=== PATIENT | female | born 1945 | race Caucasian/White ===

== ENCOUNTER 2019-11-06 14:41 | Inpatient (IN) | payer MEDICARE ==
[~2019-11-06] VITALS: Ht 152.4 cm; Wt 62.4 kg
[2019-11-06] MEDS ORDERED: ENOX40DI SQ (20:03)
[2019-11-06] MEDS ORDERED: CELE200C PO (20:03)
[2019-11-06] MEDS ORDERED: BUPR-319 PO (20:03)
[2019-11-06] MEDS ORDERED: MEMA10TA PO (20:03)
[2019-11-06] MEDS ORDERED: ESCI10TA PO (20:03)
[2019-11-06] MEDS ORDERED: Z GUARD REMEDY PASTE 57 GM TUBE TOP SCH (21:00)
[2019-11-06] MEDS ORDERED: Z GUARD REMEDY PASTE 57 GM TUBE TOP PRN (21:15)
[2019-11-06 21:17] VITALS: BP 136/65
[2019-11-06] MEDS: HYDROCODONE/APAP 5-325MG TABLET PO PRN (21:27)
--- NOTE | 2019-11-06 22:46 | NUR ---
Received pt resting in bed. AAO x2-3, forgetful. On room air, no acute distress noted. C/o pain on right hip, PRN pain med given as ordered. VSS. Notified Dr. Díaz of admission. Notified Dr. Sandoval for medication reconciliation. Pertinent assessment done. Oriented pt to the room and equipment. MRSA swab sent to the lab. Belonging's list check done. Safety measures maintained. Call light and personal items within reach. Will continue to monitor.
--- NOTE | 2019-11-06 22:48 | NUR ---
As per pt's son, pt should not be taking leflunomide for rheumatoid arthritis. Pt's rheumatoid arthritis doctor discontinued it already 2 months ago. Notified .
[2019-11-07] MEDS: HYDROCODONE/APAP 5-325MG TABLET PO PRN ×4 (02:31→21:43)
[2019-11-07 05:40] VITALS: BP 119/64
[2019-11-07 07:30] VITALS: BP 138/71
[2019-11-07] MEDS ORDERED: MEMANTINE HCL 10 MG TABLET PO SCH (10:30)
[2019-11-07] MEDS: buPROPion XL 150 MG TAB.SR.24H PO SCH (10:52)
[2019-11-07] MEDS: ENOXAPARIN SODIUM 40 MG/0.4 ML DISP.SYRIN SQ SCH (10:53)
[2019-11-07] MEDS: MEMANTINE HCL 10 MG TABLET PO SCH ×2 (10:53→17:13)
[2019-11-07] MEDS: ESCITALOPRAM OXALATE 10 MG TABLET PO SCH (10:53)
--- NOTE | 2019-11-07 13:26 | NUR ---
INTERDISCIPLINARY TEAM CONFERENCE
--- NOTE | 2019-11-07 14:42 | NUR ---
FAMILY CONTACT: SW emailed pts son Dom ([phone]/ the following information: "Tim Fernandes, After speaking with Gene, case folder ([phone]), he informed me that there are 3 SNFs that your moms insurance is contracted with: 1.[facility] Address: [address] [place] [address] 2.[facility] Address: [address] [place] [address] 3.[facility] Address: [address] [place] [address] . Please follow up with him on Sunday for additional questions"
[2019-11-07 15:49] VITALS: BP 119/59
--- NOTE | 2019-11-07 20:00 | NUR ---
Received patient awake and verbally responsive, forgetful.On Room air .No s/s of distress.Denies pain or discomfort at this time.Noted with dry dressing on right hip.Call light with in reach .Will continue to monitor.Continue safety measures.
[2019-11-07 21:11] VITALS: BP 121/67
[2019-11-08] MEDS: HYDROCODONE/APAP 5-325MG TABLET PO PRN ×4 (02:26→21:43)
[2019-11-08 05:13] VITALS: BP 130/75
--- NOTE | 2019-11-08 06:10 | NUR ---
Patient slept intermittently .Noted with episode of agitation x1.C/o sharp pain on Rt hip.PRN medication given 225 with relief.Changed and repositioned patient for comfort.Refused to wear hospital gown at this time.Call light with in reach. Will endorse to oncoming nurse.
[2019-11-08 07:02] LABS: CARBON DIOXIDE 30 mmol/L (21-32); CHLORIDE 107 mmol/L (98-107); CREATININE 0.5 mg/dL (0.6-1.3); GLUCOSE 94 mg/dL (74-106); MAGNESIUM 1.9 mg/dL (1.8-2.4); PHOSPHOROUS 4.6 mg/dL (2.5-4.9); POTASSIUM 4.5 mmol/L (3.5-5.1); UREA NITROGEN, BLOOD 13 mg/dL (7-18)
[2019-11-08 07:32] LABS: BASOPHILS # (AUTO) 0.1 K/uL (0.0-8.0); BASOPHILS % (AUTO) 1.4 % (0.0-2.0); EOSINOPHILS # (AUTO) 0.3 K/uL (0.0-0.7); EOSINOPHILS % (AUTO) 5.5 % (0.0-7.0); HEMATOCRIT 27.3 % (31.2-41.9); HEMOGLOBIN 9.2 g/dL (10.9-14.3); LYMPHOCYTES % (AUTO) 16.3 % (20.5-51.5); MEAN CORPUSCULAR HEMOGLOBIN 29.7 uug (24.7-32.8); MEAN CORPUSCULAR HGB CONC 34 g/dL (32.3-35.6); MEAN CORPUSCULAR VOLUME 88.3 fL (75.5-95.3); MONOCYTES # (AUTO) 0.8 K/uL (2.0-10.0); MONOCYTES % (AUTO) 12.6 % (0.0-11.0); NEUTROPHILS # (AUTO) 3.9 K/uL (1.8-8.9); NEUTROPHILS % (AUTO) 64.2 % (38.5-71.5); PLATELET COUNT (AUTO) 297 K/uL (179-408); RED BLOOD CELL COUNT(AUTO) 3.09 MIL/uL (3.63-4.92)
[2019-11-08 08:00] VITALS: BP 136/64
[2019-11-08] MEDS: MEMANTINE HCL 10 MG TABLET PO SCH ×2 (08:42→17:31)
[2019-11-08] MEDS: ESCITALOPRAM OXALATE 10 MG TABLET PO SCH (08:42)
[2019-11-08] MEDS: buPROPion XL 150 MG TAB.SR.24H PO SCH (08:42)
[2019-11-08] MEDS: ENOXAPARIN SODIUM 40 MG/0.4 ML DISP.SYRIN SQ SCH (08:44)
--- NOTE | 2019-11-08 11:10 | NUR ---
Received patient in bed, patient is AAO x 1-2, patient noted being very forgetful. NO acute distress noted. Vital signs stable. Patient compliant with meds, due morning meds administered. Right hip incision site intact and dry, dressing changed. Patient on PT/OT therapy as outlined. Monitored closely, patient needs reorientation most of the time. Bed alarm on for safety. Skin kept clean and dry. Needs attended, safety measures in place and will continue with care.
[2019-11-08 15:46] VITALS: BP 119/62
--- NOTE | 2019-11-08 18:27 | NUR ---
Patient calm and resting in bed, assisted with adls, due evening meds administered and tolerated. Safety needs in place and will continue with care.
[2019-11-08 20:00] VITALS: BP 142/70
--- NOTE | 2019-11-08 21:30 | NUR ---
Received patient in bed, patient is AAO x 2-3 forgetful. No s/s of acute distress noted, no SOB noted, on room air. Vital signs stable. All due medication administered. Denies any pain at this moment. Right hip incision site intact and dry, dressing changed. Skin kept clean and dry.Safety measure in place, bed locked and lowered to lowest position, rails x2, bed locked and Bed alarm on for safety. Needs attended, safety measures in place and will continue with care.
--- NOTE | 2019-11-08 22:00 | NUR ---
Spoke to son Dom, aware that patient is confused and has history of dementia. Son would like a psych evaluation to be completed.
[2019-11-09] MEDS: HYDROCODONE/APAP 5-325MG TABLET PO PRN ×3 (02:32→20:45)
[2019-11-09 04:00] VITALS: BP 134/55
[2019-11-09] MEDS: ASPIRIN/ACETAMINOPHEN/CAFFEINE TABLET PO PRN ×2 (05:34→15:50)
[2019-11-09 06:02] LABS: BASOPHILS % (AUTO) 0.3 % (0.0-2.0); EOSINOPHILS # (AUTO) 0.3 K/uL (0.0-0.7); EOSINOPHILS % (AUTO) 4.9 % (0.0-7.0); HEMATOCRIT 26.1 % (31.2-41.9); HEMOGLOBIN 8.8 g/dL (10.9-14.3); LYMPHOCYTES # (AUTO) 1.2 K/uL (20.0-40.0); LYMPHOCYTES % (AUTO) 18.1 % (20.5-51.5); MEAN CORPUSCULAR HEMOGLOBIN 29.9 uug (24.7-32.8); MEAN CORPUSCULAR HGB CONC 34 g/dL (32.3-35.6); MEAN CORPUSCULAR VOLUME 88.2 fL (75.5-95.3); MONOCYTES # (AUTO) 0.8 K/uL (2.0-10.0); NEUTROPHILS # (AUTO) 4.1 K/uL (1.8-8.9); NEUTROPHILS % (AUTO) 64.7 % (38.5-71.5); PLATELET COUNT (AUTO) 322 K/uL (179-408); RED BLOOD CELL COUNT(AUTO) 2.96 MIL/uL (3.63-4.92); WHITE BLOOD COUNT (AUTO) 6.4 K/uL (3.8-11.8)
[2019-11-09 08:00] VITALS: BP 106/54
[2019-11-09] MEDS: buPROPion XL 150 MG TAB.SR.24H PO SCH (09:06)
[2019-11-09] MEDS: ESCITALOPRAM OXALATE 10 MG TABLET PO SCH (09:06)
[2019-11-09] MEDS: MEMANTINE HCL 10 MG TABLET PO SCH ×2 (09:06→17:16)
[2019-11-09] MEDS: ENOXAPARIN SODIUM 40 MG/0.4 ML DISP.SYRIN SQ SCH (09:09)
[2019-11-09] MEDS: CELECOXIB 200 MG CAPSULE PO PRN (12:09)
[2019-11-09 16:17] VITALS: BP 98/86
--- NOTE | 2019-11-09 18:28 | NUR ---
Pt received resting in bed, assessed, AAOx2-3, forgetful at times, no acute distress, VSS, and no SOB. Pt compliant with routinely scheduled medications, and pain medication administered per PRN orders prior to therapy. Pt cooperative with therapies as offered. Pt assisted to BSC for BMx1. Pt able to make needs known. Spoke with son, Dom regarding plan of care. All comfort and safety measures implemented. Pt seen by PUBLIC RELATIONS PLAYER, new orders received, will follow up as ordered. Call light and personal belongings placed at bedside within reach. Will continue to monitor safety.
[2019-11-09 19:01] LABS: *BLOOD, URINE NEGATIVE (NEGATIVE); *CLARITY,URINE SLIGHTLY CLOUDY (CLEAR); *COLOR,URINE YELLOW (YELLOW); *KETONES,URINE NEGATIVE (NEGATIVE); LEUKOCYTE ESTERASE ,URINE NEGATIVE (NEGATIVE); NITRITE, URINE NEGATIVE (NEGATIVE); PH,URINE 5.5 (5.0-8.0); UGLUCOSE NEGATIVE (NEGATIVE)
[2019-11-09 19:02] LABS: *BILIRUBIN,URIN 1+ (NEGATIVE)
--- NOTE | 2019-11-09 19:02 | NUR ---
Urine sample collected and sent to lab for UA. All needs attended to, no s/s of infection, incision site clean and dry with new dressing.
--- NOTE | 2019-11-09 19:43 | NUR ---
Received patient awake and verbally responsive,watching TV . Axox3 On Room air .No s/s of distress.Denies pain or discomfort at this time. Noted with dry dressing on right hip. Safety measure in place. Call light and all personal items within reach. Will continue to monitor. Continue safety measures and attend to all needs promptly.
[2019-11-09 20:08] VITALS: BP 136/65
[2019-11-09] MEDS: QUETIAPINE FUMARATE 25 MG TABLET PO SCH (20:32)
--- NOTE | 2019-11-10 05:33 | NUR ---
Patient calm and resting in bed. No new changes. All needs attended to promptly, assisted with ADL's and transfer to bedside commode x3. All due medications administered and tolerated. Safety measures in place and will continue with care and endorse next shift accordingly.
[2019-11-10 05:51] VITALS: BP 128/62
[2019-11-10 08:00] VITALS: BP 150/70
[2019-11-10] MEDS: ESCITALOPRAM OXALATE 10 MG TABLET PO SCH (08:17)
[2019-11-10] MEDS: MEMANTINE HCL 10 MG TABLET PO SCH ×2 (08:18→16:47)
[2019-11-10] MEDS: HYDROCODONE/APAP 5-325MG TABLET PO PRN (08:18)
[2019-11-10] MEDS: buPROPion XL 150 MG TAB.SR.24H PO SCH (08:18)
[2019-11-10] MEDS: ENOXAPARIN SODIUM 40 MG/0.4 ML DISP.SYRIN SQ SCH (08:20)
[2019-11-10] MEDS: DOCUSATE SODIUM 100 MG CAPSULE PO SCH ×2 (11:33→20:38)
[2019-11-10] MEDS: ACETAMINOPHEN 325 MG TABLET PO PRN ×2 (11:33→20:38)
[2019-11-10 16:00] VITALS: BP 136/62
[2019-11-10] MEDS ORDERED: HYDROCODONE/APAP 5-325MG TABLET PO ONE (16:47)
--- NOTE | 2019-11-10 18:53 | NUR ---
Pt AAOx2-3; forgetful. Medications administered as ordered and tolerated, refer to MAR. No s/s of acute distress at this time. Pain medication administered appropriately x3 for R hip pain with good result. All needs attended at all times; will endorse care accordingly.
--- NOTE | 2019-11-10 19:30 | NUR ---
Received patient awake and sitting in bed. AAOx2-3, forgetful at times. No s/s of acute distress noted. Pt is on RA and denies SOB. Pt c/o pain and will administer pain medication per orders. Bed low, locked, and alarm is on. Safety measures in place and will continue to monitor.
[2019-11-10 20:00] VITALS: BP 136/62
[2019-11-10] MEDS: QUETIAPINE FUMARATE 25 MG TABLET PO SCH (20:39)
[2019-11-11] MEDS: ACETAMINOPHEN 325 MG TABLET PO PRN ×3 (03:25→20:03)
[2019-11-11 04:00] VITALS: BP 133/60
[2019-11-11 06:06] LABS: BASOPHILS # (AUTO) 0.1 K/uL (0.0-8.0); BASOPHILS % (AUTO) 0.9 % (0.0-2.0); EOSINOPHILS # (AUTO) 0.4 K/uL (0.0-0.7); EOSINOPHILS % (AUTO) 5.3 % (0.0-7.0); HEMATOCRIT 30.4 % (31.2-41.9); HEMOGLOBIN 10.1 g/dL (10.9-14.3); LYMPHOCYTES # (AUTO) 1.2 K/uL (20.0-40.0); LYMPHOCYTES % (AUTO) 15.1 % (20.5-51.5); MEAN CORPUSCULAR HEMOGLOBIN 29.8 uug (24.7-32.8); MEAN CORPUSCULAR HGB CONC 33 g/dL (32.3-35.6); MEAN CORPUSCULAR VOLUME 89.1 fL (75.5-95.3); MONOCYTES # (AUTO) 0.8 K/uL (2.0-10.0); MONOCYTES % (AUTO) 10.8 % (0.0-11.0); NEUTROPHILS # (AUTO) 5.3 K/uL (1.8-8.9); NEUTROPHILS % (AUTO) 67.9 % (38.5-71.5); PLATELET COUNT (AUTO) 402 K/uL (179-408); RED BLOOD CELL COUNT(AUTO) 3.41 MIL/uL (3.63-4.92); WHITE BLOOD COUNT (AUTO) 7.9 K/uL (3.8-11.8)
[2019-11-11 06:20] LABS: MAGNESIUM 1.9 mg/dL (1.8-2.4); PHOSPHOROUS 3.3 mg/dL (2.5-4.9); POTASSIUM 3.6 mmol/L (3.5-5.1)
[2019-11-11 07:30] VITALS: BP 131/56
[2019-11-11] MEDS: buPROPion XL 150 MG TAB.SR.24H PO SCH (09:16)
[2019-11-11] MEDS: ESCITALOPRAM OXALATE 10 MG TABLET PO SCH (09:17)
[2019-11-11] MEDS: DOCUSATE SODIUM 100 MG CAPSULE PO SCH ×2 (09:17→20:08)
[2019-11-11] MEDS: MEMANTINE HCL 10 MG TABLET PO SCH ×2 (09:17→17:00)
[2019-11-11] MEDS: ENOXAPARIN SODIUM 40 MG/0.4 ML DISP.SYRIN SQ SCH (09:24)
[2019-11-11 15:54] VITALS: BP 136/61
--- NOTE | 2019-11-11 19:50 | NUR ---
Awake, watching TV at this time. HOB elevated. Complaint of right hip pain at this time in scale of 4/10. Assisted to the chair per request. Visual and physical supervision implemented.
[2019-11-11 20:00] VITALS: BP 128/61
--- NOTE | 2019-11-11 20:05 | NUR ---
Complaint of right hip pain. Tylenol given as needed and ordered. Will monitor.
[2019-11-11] MEDS: QUETIAPINE FUMARATE 25 MG TABLET PO SCH (20:08)
--- NOTE | 2019-11-11 21:15 | NUR ---
Assisted back to bed. Repositioned for comfort.
[2019-11-12 04:00] VITALS: BP 154/68
[2019-11-12] MEDS: ACETAMINOPHEN 325 MG TABLET PO PRN ×3 (04:31→23:23)
--- NOTE | 2019-11-12 06:25 | NUR ---
Shift End Reporty:
--- NOTE | 2019-11-12 06:25 | NUR ---
Shift End Report: Vs stable. Slept fair. Very needy, demanding, has attitude. constantly calling/repetitive request. Had multiple BM episodes approximately 5 times, soft, formed, brown stool. Good derik care/skin care rendered. All needs attended and met. Medicated twice with Tylenol due to discomforts with relief. Continue current rehab plan of care.
[2019-11-12 08:00] VITALS: BP 154/66
[2019-11-12] MEDS: buPROPion XL 150 MG TAB.SR.24H PO SCH (09:10)
[2019-11-12] MEDS: MEMANTINE HCL 10 MG TABLET PO SCH ×2 (09:10→16:18)
[2019-11-12] MEDS: DOCUSATE SODIUM 100 MG CAPSULE PO SCH ×2 (09:11→20:42)
[2019-11-12] MEDS: ESCITALOPRAM OXALATE 10 MG TABLET PO SCH (09:11)
[2019-11-12] MEDS: ENOXAPARIN SODIUM 40 MG/0.4 ML DISP.SYRIN SQ SCH (09:14)
--- NOTE | 2019-11-12 14:52 | NUR ---
patient is high risk to fall, does not call for state tested nursing assistant, despite multiple reminders to use the call light, right hip incision site is clean and dry, patient is able to ambulate with fww, with supervision, pain is well managed with medication and nonpharmacological interventions.
[2019-11-12 16:23] VITALS: BP 128/63
[2019-11-12] MEDS: ASPIRIN/ACETAMINOPHEN/CAFFEINE TABLET PO PRN (20:23)
[2019-11-12 20:32] VITALS: BP 126/60
[2019-11-12] MEDS: QUETIAPINE FUMARATE 25 MG TABLET PO SCH (20:42)
[2019-11-13 05:15] VITALS: BP 172/78
[2019-11-13 07:35] VITALS: BP 154/68
[2019-11-13] MEDS: DOCUSATE SODIUM 100 MG CAPSULE PO SCH ×2 (08:30→20:21)
[2019-11-13] MEDS: MEMANTINE HCL 10 MG TABLET PO SCH ×2 (08:30→17:27)
[2019-11-13] MEDS: buPROPion XL 150 MG TAB.SR.24H PO SCH (08:30)
[2019-11-13] MEDS: ESCITALOPRAM OXALATE 10 MG TABLET PO SCH (08:30)
[2019-11-13] MEDS: ACETAMINOPHEN 325 MG TABLET PO PRN (08:30)
[2019-11-13] MEDS: ENOXAPARIN SODIUM 40 MG/0.4 ML DISP.SYRIN SQ SCH (08:31)
[2019-11-13 14:30] VITALS: BP 124/61
--- NOTE | 2019-11-13 18:05 | NUR ---
Patient remains alert, oriented x 2-3, not in any form of distress, on room air. No complain of any pain or discomfort at this time. Compliant with due medications and tolerated well. Participated with PT, OT, ST and tolerated well. Assisted patient ambulate with walker to the bathroom to void and assisted safely back to bed. Safety measures maintained. Call light and frequently used items placed within patient's reach.
[2019-11-13 19:50] VITALS: BP 130/58
[2019-11-13] MEDS: QUETIAPINE FUMARATE 25 MG TABLET PO SCH (20:21)
[2019-11-13] MEDS: ASPIRIN/ACETAMINOPHEN/CAFFEINE TABLET PO PRN (21:17)
--- NOTE | 2019-11-13 23:17 | NUR ---
Received pt sitting in wheel chair. assisted pt back to bed. Patient awake and verbally responsive,watching TV . Axox3. No s/s of distress or SOB noted. Denies pain or discomfort in her hip at this time, but request Excedrin for headache. Right hip surgical site open to air, no sigh of infection no drainage noted. All due medication administered. Assisted pt to the bathroom. All needs attended, snack provided. Safety measure in place. Call light and all personal items within reach. Will continue to monitor through the night.
[2019-11-14] MEDS: ACETAMINOPHEN 325 MG TABLET PO PRN (01:57)
[2019-11-14] MEDS: CELECOXIB 200 MG CAPSULE PO PRN (03:02)
[2019-11-14 04:41] VITALS: BP 170/72
[2019-11-14 06:09] VITALS: BP 157/69
[2019-11-14 08:22] VITALS: BP 164/71
[2019-11-14] MEDS: ESCITALOPRAM OXALATE 10 MG TABLET PO SCH (08:36)
[2019-11-14] MEDS: MEMANTINE HCL 10 MG TABLET PO SCH ×2 (08:36→16:07)
[2019-11-14] MEDS: buPROPion XL 150 MG TAB.SR.24H PO SCH (08:36)
[2019-11-14] MEDS: DOCUSATE SODIUM 100 MG CAPSULE PO SCH ×2 (08:37→20:08)
[2019-11-14] MEDS: ENOXAPARIN SODIUM 40 MG/0.4 ML DISP.SYRIN SQ SCH (08:39)
--- NOTE | 2019-11-14 11:56 | NUR ---
KRISS NOTE: [facility] Health Plan Advisor informed KRISS to contact patient's son, Dom ([phone]) to assist with some questions he has. This health science writer spoke with Dom and discussed the following. His main concern was that since neither he or his sister have decision making rights, and they have different opinions on what they would like for the patient, they want to know that the hospital is considering what the patient would like. He stated that he would like the patient to continue rehab at a SNF, however his sister wants the patient to return home. He did consult with a technical recruiter for possible POA or Conservatorship and is aware of the process it requires. Dom mainly wanted to make sure that we take into consideration of the patients wishes and where she would like to go from the hospital. The patient has a diagnosis of major neurocognitive disorder and has a significant marked impairment in her memory. After I met with her today, she was not able to remember certain things such as having a caregiver or physical therapist at home, which Dom stated she has. Dom is the economic development manager where the patient resides and takes care of her rent and other financial regards, as well as providing the appropriate caregivers for the patient. The patient stated that she trusts her son and what he thinks is best for her. The patient states she wants to go home, but does not want to be a burden on her son. Patient is open to a SNF placement as well. Dom wants the doctor to make the most safest decision for the patient in regard to discharge, with the patient.
--- NOTE | 2019-11-14 16:00 | NUR ---
NO DISTRESS NOTED DURING SHIFT, NO SOB, RESP EVEN NONLABORED, SKIN WARM AND DRY TO TOUCH, INCISION SITE IS CLEAN AND DRY, ABLE TO AMBULATED WITH ASSIST WITH FWW. CONTINUE WITH SAME PLAN OF CARE
[2019-11-14] MEDS: QUETIAPINE FUMARATE 25 MG TABLET PO SCH (20:08)
[2019-11-14 20:15] VITALS: BP 144/69
--- NOTE | 2019-11-15 04:04 | NUR ---
awake alert and oriented x2-3 OOB to the BR with walker under supervision. Needs attended. Voiding well in the BR. Kept comfortable. Right hip incision healing JE. Denies any pain nor any discomfort. Will monitor patient. Fall risk patient. Bed alarm on. Calm and cooperative. Siderails up for safety. Call hernandez within reach.
[2019-11-15 05:41] VITALS: BP 135/72
[2019-11-15 08:00] VITALS: BP 148/76
[2019-11-15] MEDS: MEMANTINE HCL 10 MG TABLET PO SCH ×2 (08:53→17:50)
[2019-11-15] MEDS: DOCUSATE SODIUM 100 MG CAPSULE PO SCH ×2 (08:53→20:18)
[2019-11-15] MEDS: buPROPion XL 150 MG TAB.SR.24H PO SCH (08:53)
[2019-11-15] MEDS: ESCITALOPRAM OXALATE 10 MG TABLET PO SCH (08:53)
[2019-11-15] MEDS: ASPIRIN/ACETAMINOPHEN/CAFFEINE TABLET PO PRN (08:57)
[2019-11-15] MEDS: ENOXAPARIN SODIUM 40 MG/0.4 ML DISP.SYRIN SQ SCH (09:02)
[2019-11-15] MEDS: OXYCODONE/APAP 5-325 MG TABLET PO PRN ×2 (12:44→20:18)
[2019-11-15 16:13] VITALS: BP 132/61
[2019-11-15 20:00] VITALS: BP 121/68
[2019-11-15] MEDS: QUETIAPINE FUMARATE 25 MG TABLET PO SCH (20:18)
--- NOTE | 2019-11-15 20:53 | NUR ---
Received pt resting in bed. AAO x2-3, forgetful. No acute distress noted. Complain of pain, PRN pain med given. Other due meds given as ordered. Safety measures maintained. Call light and personal items within reach. Will continue to monitor.
[2019-11-16 04:00] VITALS: BP 137/70
[2019-11-16 08:00] VITALS: BP 132/60
[2019-11-16] MEDS: OXYCODONE/APAP 5-325 MG TABLET PO PRN ×3 (09:44→23:52)
[2019-11-16] MEDS: ESCITALOPRAM OXALATE 10 MG TABLET PO SCH (09:44)
[2019-11-16] MEDS: DOCUSATE SODIUM 100 MG CAPSULE PO SCH ×2 (09:44→20:42)
[2019-11-16] MEDS: MEMANTINE HCL 10 MG TABLET PO SCH ×2 (09:44→17:37)
[2019-11-16] MEDS: buPROPion XL 150 MG TAB.SR.24H PO SCH (09:44)
[2019-11-16] MEDS: ENOXAPARIN SODIUM 40 MG/0.4 ML DISP.SYRIN SQ SCH (09:46)
[2019-11-16 16:00] VITALS: BP 113/55
[2019-11-16 20:00] VITALS: BP 123/66
[2019-11-16] MEDS: QUETIAPINE FUMARATE 25 MG TABLET PO SCH (20:42)
--- NOTE | 2019-11-17 04:41 | NUR ---
Patient calm and resting in bed. No new changes. All needs attended to promptly, assisted with ADL's and transfer to bathroom x3 with walker and stand by assist. All due medications administered and tolerated well, given PRN pain medication, effective. All needs attended to promptly. Snacks provided, kept comfortable. Safety measures in place and call light and all personal items within reach. will continue with plan of care and endorse next shift accordingly.
[2019-11-17 05:58] VITALS: BP 117/65
[2019-11-17 06:13] LABS: BASOPHILS # (AUTO) 0.1 K/uL (0.0-8.0); BASOPHILS % (AUTO) 1.2 % (0.0-2.0); EOSINOPHILS # (AUTO) 0.3 K/uL (0.0-0.7); EOSINOPHILS % (AUTO) 5.1 % (0.0-7.0); HEMATOCRIT 31.3 % (31.2-41.9); HEMOGLOBIN 10.2 g/dL (10.9-14.3); LYMPHOCYTES # (AUTO) 1.3 K/uL (20.0-40.0); LYMPHOCYTES % (AUTO) 23.8 % (20.5-51.5); MEAN CORPUSCULAR HEMOGLOBIN 29.3 uug (24.7-32.8); MEAN CORPUSCULAR HGB CONC 33 g/dL (32.3-35.6); MONOCYTES # (AUTO) 0.5 K/uL (2.0-10.0); MONOCYTES % (AUTO) 10.3 % (0.0-11.0); NEUTROPHILS # (AUTO) 3.2 K/uL (1.8-8.9); NEUTROPHILS % (AUTO) 59.6 % (38.5-71.5); PLATELET COUNT (AUTO) 444 K/uL (179-408); RED BLOOD CELL COUNT(AUTO) 3.48 MIL/uL (3.63-4.92); WHITE BLOOD COUNT (AUTO) 5.3 K/uL (3.8-11.8)
[2019-11-17 06:56] LABS: BILIRUBIN,TOTAL 0.3 mg/dL (0.2-1.0); CREATININE 0.8 mg/dL (0.6-1.3); MAGNESIUM 2.1 mg/dL (1.8-2.4); PHOSPHOROUS 3.5 mg/dL (2.5-4.9); POTASSIUM 3.5 mmol/L (3.5-5.1); TOTAL PROTEIN, SERUM 6.3 g/dL (6.4-8.2)
[2019-11-17 07:30] VITALS: BP 131/65
[2019-11-17 07:36] LABS: THYROID STIMULATING HORMONE 1.616 mIU/mL (0.358-3.740)
[2019-11-17] MEDS: CELECOXIB 200 MG CAPSULE PO PRN (08:53)
[2019-11-17] MEDS: ESCITALOPRAM OXALATE 10 MG TABLET PO SCH (08:53)
[2019-11-17] MEDS: DOCUSATE SODIUM 100 MG CAPSULE PO SCH ×2 (08:53→20:23)
[2019-11-17] MEDS: MEMANTINE HCL 10 MG TABLET PO SCH ×2 (08:53→16:48)
[2019-11-17] MEDS: buPROPion XL 150 MG TAB.SR.24H PO SCH (08:53)
[2019-11-17] MEDS: ENOXAPARIN SODIUM 40 MG/0.4 ML DISP.SYRIN SQ SCH (08:57)
--- NOTE | 2019-11-17 13:45 | NUR ---
Pt received resting in bed, assessed, no acute distress, no SOB, pain medication requested prior to therapy to manage pain at a tolerable level. Pt compliant with routine and PRN medications, cooperative with therapies as offered. VSS. Right hip surgical site NIGHT FILLER, no s/s of infection at this time. All safety and comfort measures implemented. Call light and personal belongings placed within reach. Will continue to monitor.
[2019-11-17 16:00] VITALS: BP 110/54
[2019-11-17 20:00] VITALS: BP 117/62
[2019-11-17] MEDS: QUETIAPINE FUMARATE 25 MG TABLET PO SCH (20:24)
[2019-11-17] MEDS: OXYCODONE/APAP 5-325 MG TABLET PO PRN (20:24)
[2019-11-18 04:00] VITALS: BP 123/64
--- NOTE | 2019-11-18 06:38 | NUR ---
Patient cooperative no signs of distress, slept through the night. No new changes. All needs attended to promptly, assisted with ADL's and transfer to bathroom x2 with walker and stand by assist. All due medications administered and tolerated well, given PRN pain medication, effective. All needs attended to promptly. Snacks provided, kept comfortable. Safety measures in place and call light and all personal items within reach. will continue with plan of care and endorse next shift accordingly.
[2019-11-18 07:30] VITALS: BP 139/66
[2019-11-18] MEDS: MEMANTINE HCL 10 MG TABLET PO SCH ×2 (08:20→17:10)
[2019-11-18] MEDS: DOCUSATE SODIUM 100 MG CAPSULE PO SCH ×2 (08:20→20:42)
[2019-11-18] MEDS: ESCITALOPRAM OXALATE 10 MG TABLET PO SCH (08:20)
[2019-11-18] MEDS: ENOXAPARIN SODIUM 40 MG/0.4 ML DISP.SYRIN SQ SCH (08:26)
[2019-11-18] MEDS: buPROPion XL 150 MG TAB.SR.24H PO SCH (08:52)
--- NOTE | 2019-11-18 12:42 | NUR ---
Received patient awake in bed in stable condition. Patient compliant with medication. Consumed meals fairly. Patient participates in therapy without difficulty. not in distress. will continue monitor
[2019-11-18 16:00] VITALS: BP 131/61
[2019-11-18 20:20] VITALS: BP 145/69
[2019-11-18] MEDS: QUETIAPINE FUMARATE 25 MG TABLET PO SCH (20:41)
[2019-11-18] MEDS: SIMVASTATIN 10 MG TABLET PO SCH (20:42)
[2019-11-19] MEDS: OXYCODONE/APAP 5-325 MG TABLET PO PRN (00:26)
--- NOTE | 2019-11-19 02:34 | NUR ---
AAOx2-3 Forgetful at times. Remain in stable condition. No acute distress noted. VSS. Kept comfortable. All due meds given.Tolerated po meds well. voiding well. Medicated for pain as needed. Will monitor patient.
[2019-11-19 08:57] VITALS: BP 154/74
[2019-11-19] MEDS: ENOXAPARIN SODIUM 40 MG/0.4 ML DISP.SYRIN SQ SCH (09:29)
[2019-11-19] MEDS: MEMANTINE HCL 10 MG TABLET PO SCH ×2 (09:32→16:09)
[2019-11-19] MEDS: ESCITALOPRAM OXALATE 10 MG TABLET PO SCH (09:32)
[2019-11-19] MEDS: buPROPion XL 150 MG TAB.SR.24H PO SCH (09:32)
[2019-11-19] MEDS: DOCUSATE SODIUM 100 MG CAPSULE PO SCH ×2 (09:32→20:29)
--- NOTE | 2019-11-19 11:11 | NUR ---
Received patient awake in bed in stable condition. Patient continue therapy for increase strenght and therapeutic exercises. Patient right hip surgery open to air, healing well. MD Yost aware. Schedule on Nov 25 for FF UP consult. not in distress. will continue monitor
[2019-11-19 15:31] VITALS: BP 115/47
[2019-11-19 20:27] VITALS: BP 147/74
[2019-11-19] MEDS: QUETIAPINE FUMARATE 25 MG TABLET PO SCH (20:28)
[2019-11-19] MEDS: SIMVASTATIN 10 MG TABLET PO SCH (20:28)
[2019-11-20 04:51] VITALS: BP 136/64
--- NOTE | 2019-11-20 06:26 | NUR ---
Slept well most of the shift. OOB with walker to the BR. Voiding without difficulty. No complaints presented during the shift. VSS. Fall precautions maintained. Siderails up for safety.
[2019-11-20 08:15] VITALS: BP 145/77
[2019-11-20] MEDS: MEMANTINE HCL 10 MG TABLET PO SCH ×2 (08:23→16:23)
[2019-11-20] MEDS: DOCUSATE SODIUM 100 MG CAPSULE PO SCH ×2 (08:23→20:53)
[2019-11-20] MEDS: ESCITALOPRAM OXALATE 10 MG TABLET PO SCH (08:23)
[2019-11-20] MEDS: buPROPion XL 150 MG TAB.SR.24H PO SCH (08:28)
[2019-11-20] MEDS: ENOXAPARIN SODIUM 40 MG/0.4 ML DISP.SYRIN SQ SCH (08:29)
[2019-11-20] MEDS: CELECOXIB 200 MG CAPSULE PO PRN (12:15)
--- NOTE | 2019-11-20 15:38 | NUR ---
no changes noted, participated with PT, OT services, tolerated well
--- NOTE | 2019-11-20 17:52 | NUR ---
ordered xray of right hip, CD, and covid test on Saturdays, per senior corporate strategy manager, patient might discharge to snf
[2019-11-20] MEDS: SIMVASTATIN 10 MG TABLET PO SCH (20:53)
[2019-11-20] MEDS: QUETIAPINE FUMARATE 25 MG TABLET PO SCH (20:54)
[2019-11-20 21:15] VITALS: BP 119/63
--- NOTE | 2019-11-20 21:39 | NUR ---
resting in bed. aaox 2-3 OOB to the BR with walker. Continent of bowel and bladder. VSS. Needs attended. Tolerated po meds well. No acute distress noted. Siderails up. No complaints presented during shift.
[2019-11-21 04:57] VITALS: BP 123/74
[2019-11-21 06:17] LABS: BASOPHILS # (AUTO) 0.1 K/uL (0.0-8.0); BASOPHILS % (AUTO) 1.2 % (0.0-2.0); EOSINOPHILS # (AUTO) 0.3 K/uL (0.0-0.7); EOSINOPHILS % (AUTO) 6.2 % (0.0-7.0); HEMATOCRIT 32.3 % (31.2-41.9); HEMOGLOBIN 10.7 g/dL (10.9-14.3); MEAN CORPUSCULAR HEMOGLOBIN 29.8 uug (24.7-32.8); MEAN CORPUSCULAR HGB CONC 33 g/dL (32.3-35.6); MEAN CORPUSCULAR VOLUME 90.1 fL (75.5-95.3); MONOCYTES # (AUTO) 0.6 K/uL (2.0-10.0); MONOCYTES % (AUTO) 11.7 % (0.0-11.0); NEUTROPHILS # (AUTO) 3.1 K/uL (1.8-8.9); NEUTROPHILS % (AUTO) 61.9 % (38.5-71.5); PLATELET COUNT (AUTO) 407 K/uL (179-408); RED BLOOD CELL COUNT(AUTO) 3.58 MIL/uL (3.63-4.92)
[2019-11-21 06:32] LABS: CREATININE 0.7 mg/dL (0.6-1.3); POTASSIUM 3.7 mmol/L (3.5-5.1)
--- NOTE | 2019-11-21 06:41 | NUR ---
End of shift notes: Uneventful night. AAOx3-4 Slept well most of the shift. Voiding well. All needs attended and met. VSS. Kept comfortable.
[2019-11-21 08:22] VITALS: BP 150/74
[2019-11-21] MEDS: DOCUSATE SODIUM 100 MG CAPSULE PO SCH ×2 (08:29→20:03)
[2019-11-21] MEDS: MEMANTINE HCL 10 MG TABLET PO SCH ×2 (08:30→16:42)
[2019-11-21] MEDS: ESCITALOPRAM OXALATE 10 MG TABLET PO SCH (08:30)
[2019-11-21] MEDS: buPROPion XL 150 MG TAB.SR.24H PO SCH (08:30)
[2019-11-21] MEDS: ENOXAPARIN SODIUM 40 MG/0.4 ML DISP.SYRIN SQ SCH (08:32)
[2019-11-21] MEDS: CELECOXIB 200 MG CAPSULE PO PRN (08:33)
--- NOTE | 2019-11-21 15:43 | NUR ---
patient is forgetful, ambulatory with fww, with supervision, no skin issues noted, reminded patient to turn on side while in bed. floated heels on pillows [id number] stays in chair most of the time. Addendum: 11/21/19 at 1546 by ROSE KELLOGG RN, RN spelling correction: patient stays in chair most of the time during day.
[2019-11-21] MEDS: SIMVASTATIN 10 MG TABLET PO SCH (20:03)
[2019-11-21] MEDS: QUETIAPINE FUMARATE 25 MG TABLET PO SCH (20:03)
[2019-11-21] MEDS: ACETAMINOPHEN 325 MG TABLET PO PRN (20:05)
[2019-11-21 20:17] VITALS: BP 131/50
--- NOTE | 2019-11-22 05:15 | NUR ---
No new changes. All needs attended to promptly, assisted with ADL's and transfer to bathroom x3 with walker and stand by assist. All due medications administered and tolerated well, given PRN pain medication Tylenol, effective. All needs attended to promptly. Snacks provided, kept comfortable. Safety measures in place and call light and all personal items within reach. will continue with plan of care and endorse next shift accordingly.
[2019-11-22 05:42] VITALS: BP 136/73
[2019-11-22 07:53] VITALS: BP_SYST 124; BP_SYST 152; BP_DIAS 66; BP_DIAS 71
[2019-11-22] MEDS: buPROPion XL 150 MG TAB.SR.24H PO SCH (09:43)
[2019-11-22] MEDS: MEMANTINE HCL 10 MG TABLET PO SCH ×2 (09:44→16:33)
[2019-11-22] MEDS: ESCITALOPRAM OXALATE 10 MG TABLET PO SCH (09:44)
[2019-11-22] MEDS: DOCUSATE SODIUM 100 MG CAPSULE PO SCH ×2 (09:44→21:21)
[2019-11-22] MEDS: ENOXAPARIN SODIUM 40 MG/0.4 ML DISP.SYRIN SQ SCH (09:47)
[2019-11-22 15:24] VITALS: BP 126/65
[2019-11-22] MEDS: SIMVASTATIN 10 MG TABLET PO SCH (21:21)
[2019-11-22] MEDS: QUETIAPINE FUMARATE 25 MG TABLET PO SCH (21:21)
[2019-11-22] MEDS: OXYCODONE/APAP 5-325 MG TABLET PO PRN (21:31)
[2019-11-22 21:47] VITALS: BP 142/69
[2019-11-23 08:00] VITALS: BP 123/46
[2019-11-23] MEDS: buPROPion XL 150 MG TAB.SR.24H PO SCH (08:32)
[2019-11-23] MEDS: ESCITALOPRAM OXALATE 10 MG TABLET PO SCH (08:32)
[2019-11-23] MEDS: MEMANTINE HCL 10 MG TABLET PO SCH ×2 (08:32→17:18)
[2019-11-23] MEDS: DOCUSATE SODIUM 100 MG CAPSULE PO SCH ×2 (08:32→20:51)
[2019-11-23] MEDS: ENOXAPARIN SODIUM 40 MG/0.4 ML DISP.SYRIN SQ SCH (08:37)
[2019-11-23] MEDS: OXYCODONE/APAP 5-325 MG TABLET PO PRN (10:24)
[2019-11-23] MEDS: CELECOXIB 200 MG CAPSULE PO PRN (10:24)
[2019-11-23 16:25] VITALS: BP_SYST 54
[2019-11-23 16:29] VITALS: BP 138/45
--- NOTE | 2019-11-23 18:07 | NUR ---
Pt received, assessed, no acute distress. Pt able to make needs known. Pt compliant with routine medications and therapies as offered. Pain managed to a tolerable level. Pt assisted to bathroom twice for voiding, steady gate with walker and returned to be safely. All comfort and safety needs attended to promptly. Call light placed within reach will continue to monitor and endorse to shift production associate.
[2019-11-23 20:34] VITALS: BP 118/70
[2019-11-23] MEDS: SIMVASTATIN 10 MG TABLET PO SCH (20:51)
[2019-11-23] MEDS: QUETIAPINE FUMARATE 25 MG TABLET PO SCH (20:51)
[2019-11-24 05:10] VITALS: BP 122/57
--- NOTE | 2019-11-24 05:10 | NUR ---
No new changes. Patient is smiling more. No acute distress noted. Denies any pain or discomfort. All needs attended to promptly, assisted with ADL's and transfer to bathroom x3 with walker. All due medications administered and tolerated well. All needs attended to promptly. Snacks provided, kept comfortable. Feet floating with pillow. Safety measures in place and call light and all personal items within reach. Will continue with plan of care and endorse next shift accordingly.
[2019-11-24 07:42] VITALS: BP 156/82
[2019-11-24] MEDS: buPROPion XL 150 MG TAB.SR.24H PO SCH (08:26)
[2019-11-24] MEDS: MEMANTINE HCL 10 MG TABLET PO SCH ×2 (08:26→17:51)
[2019-11-24] MEDS: ESCITALOPRAM OXALATE 10 MG TABLET PO SCH (08:27)
[2019-11-24] MEDS: DOCUSATE SODIUM 100 MG CAPSULE PO SCH ×2 (08:27→21:00)
[2019-11-24] MEDS: ENOXAPARIN SODIUM 40 MG/0.4 ML DISP.SYRIN SQ SCH (08:28)
[2019-11-24] MEDS: ACETAMINOPHEN 325 MG TABLET PO PRN ×2 (09:51→23:51)
[2019-11-24 15:13] VITALS: BP 117/69
--- NOTE | 2019-11-24 18:00 | NUR ---
Patient participated with PT, OT during the shift and tolerated well. Assisted with her needs. Per CM, patient's discharge is tomorrow, patient made aware and agreeable. TMS done by Dr. Crawford with prescription. Will continue to monitor
[2019-11-24] MEDS: SIMVASTATIN 10 MG TABLET PO SCH (21:00)
[2019-11-24] MEDS: QUETIAPINE FUMARATE 25 MG TABLET PO SCH (21:00)
--- NOTE | 2019-11-25 06:47 | NUR ---
Patient asleep, easily arousable, not in any form of distress, on room air. She was able to sleep through the night. Complained of right hip pain during the night, given PRN tylenol as ordered with noted relief. Needs attended to promptly. Call light and frequently used items placed within patient's reach. Safety measures maintained. Will endorse accordingly to on coming nurse.
[2019-11-25 07:58] VITALS: BP 139/75
[2019-11-25] MEDS: DOCUSATE SODIUM 100 MG CAPSULE PO SCH (08:30)
[2019-11-25] MEDS: MEMANTINE HCL 10 MG TABLET PO SCH (08:30)
[2019-11-25] MEDS: buPROPion XL 150 MG TAB.SR.24H PO SCH (08:30)
[2019-11-25] MEDS: ESCITALOPRAM OXALATE 10 MG TABLET PO SCH (08:30)
[2019-11-25] MEDS: ENOXAPARIN SODIUM 40 MG/0.4 ML DISP.SYRIN SQ SCH (08:34)
[2019-11-25] MEDS: CELECOXIB 200 MG CAPSULE PO PRN (08:35)
--- NOTE | 2019-11-25 16:18 | NUR ---
patient is alert, oriented x3, forgetful, no sob, resp even nonlabored,skin warm and dry to touch, patient discharged home, picked up by son, name Dom, instructions given to son on the phone, about follow up appointment, tomorrow, with doctor eugenia 11/26/2019 at 3pm, CD given to son and instructed to take it to ortho apt tomorrow, follow up with her primary as well with one to two weeks, instructions given for safety at home, to prevent injury from falls, explained son about patient current level of functions, and recommended call us if needs further instructions needed. son dom verbalized understanding of it. no new skin issues noted, incision site is clean and dry, well approximated, heels skin intact, coccyx skin intact, belongings accounted and signed, sent with patient, ID band removed.
[2019-11-25 16:46] VITALS: BP 126/82
== END 2019-11-25 16:10 | disposition home health service (06) | DRG 560 ==
PROVIDERS: ADMIT Physical Medicine & Rehabilitation Pain Medicine; ATTEND Physical Medicine & Rehabilitation Pain Medicine
DX: M80.051D Age-related osteoporosis with current pathological fracture, right femur, subsequent encounter for fracture with routine healing (principal); D68.59 Other primary thrombophilia; E44.0 Moderate protein-calorie malnutrition; E88.09 Other disorders of plasma-protein metabolism, not elsewhere classified; F03.90 Unspecified dementia, unspecified severity, without behavioral disturbance, psychotic disturbance, mood disturbance, and anxiety; F32.9 Major depressive disorder, single episode, unspecified; M06.9 Rheumatoid arthritis, unspecified; Z87.81 Personal history of (healed) traumatic fracture; Z96.641 Presence of right artificial hip joint; D64.9 Anemia, unspecified; E78.5 Hyperlipidemia, unspecified; M19.90 Unspecified osteoarthritis, unspecified site; Z91.81 History of falling; R53.81 Other malaise; R51.9 Headache, unspecified
CPT/HCPCS: 36415; 73501; 83735; 84100; 84443; 85025; A4663; A9150; J1650